=== PATIENT | male | born 1945 | race Caucasian/White ===

== ENCOUNTER 2020-05-19 08:20 | Day surgery (SDC) | payer OTHER ==
[~2020-05-19] VITALS: Ht 177.8 cm; Wt 79.4 kg
--- NOTE | ~2020-05-19 | OR ---
[facility] [address] [place], [place] [address] Draft DATE OF OPERATION: 05/19/2020 SURGEON: Sharmaine Zhu MD PREOPERATIVE DIAGNOSES: 1. Recurrent right inguinal hernia. 2. History of right laparoscopic hernia repair ([place], [place]). POSTOPERATIVE DIAGNOSIS: Recurrent right direct inguinal hernia. PROCEDURE: 1. Open repair of right recurrent inguinal hernia, prolonged, complicated and difficult. 2. Explantation of previous implanted mesh. ANESTHESIA: General endotracheal; Tasneem Parsons EDIPHONE OPERATOR, and local 20 mL of 0.25% Marcaine with epinephrine. 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 He is a patient of Dr. Charlie Page in [place], [place]. The patient lives in [place] though he works in [place]. He underwent in the past a right inguinal hernia repair by laparoscopic technique in [place], [place]. He additionally underwent left lower lobectomy at [facility] in August of 2019. His hernia repair was in 2015. Notably, he did have postoperative urinary retention at the time of his initial operation. The patient does have nocturia, but no urinary frequency during daylight hours. Empiric treatment with Flomax was undertaken, which caused him to have some episodes of minor incontinence and he discontinued it. A PSA was obtained preoperatively, which was greater than 10. A reflex free PSA was not done unfortunately, but I have discussed all this with him. Prostate exam shows no sign of nodular or enlarged prostate. His urinalysis showed 10 white cells per high-power field, and I have treated him with Bactrim antibiotic and the possibility this represents a prostatitis issue rather than a true urinary tract infection and of course, a consideration still made regarding the prostate for malignancy versus other inflammatory conditions. He strongly wishes to proceed with operation for repair of recurrent right inguinal hernia at this time, though I have told him he has increased risk for postoperative urinary retention as well as recurrent hernia. Given his logistical features including PATIENT NAME: FARSHAD KENDRICK OPERATIVE REPORT DATE OF : 43 REPORT #: [id number] PHYSICIAN: SHARMAINE ZHU MD PCP: CHARLIE PAGE DO REPORT IS CONFIDENTIAL AND NOT TO BE RELEASED WITHOUT AUTHORIZATION [facility] [address] [place], [place] [address] Draft distance for travel, work issues, COVID testing and so on, he wishes to proceed, mindful of these risks. FINDINGS: A direct hernia was ultimately discovered. The cord structures were preserved. Mesh from prior repair appeared to be completely disengaged from the lateral aspect (inguinal ligament area). The mesh was in a somewhat folded configuration in relation to portions of the cord structures, which ultimately required explantation of the mesh so as to preserve them. Peritoneal cavity was visualized and the defect in the area closed. Ultimately, repair included implantation of Prolene mesh in an underlay technique with [place] tissue. There is some small portion of previous mesh noted laterally, which could not be safely explanted otherwise. DESCRIPTION OF PROCEDURE: The patient was brought to the operating room, given a general endotracheal anesthetic. He was given Levaquin antibiotic initially, which caused a local reaction and ultimately given clindamycin instead. He is allergic to penicillin. After satisfactory general endotracheal anesthesia, the abdomen was clipped and prepared with a chlorhexidine solution and draped sterilely. A small incision was made cephalad to the pubic tubercle along the line of skin tension on the right side. Dissection was carried through the subcutaneous tissue with blunt and electrocautery dissection. External oblique was opened along its fibers revealing the underlying cord, ilioinguinal and iliohypogastric nerve branch were identified, dissected free and reflected medially around the external oblique. The cord was carefully mobilized from the floor and had a somewhat bulky appearance initially that actually not related to hernia ultimately found due to a relatively small lipoma. Further dissection in the floor showed attenuation of the floor and close inspection of cord structures showed no sign of indirect sac. A firm ridge consistent with prior mesh implantation was noted in the properitoneal space. This was dissected free and although, I had not intended that the mesh be excised at the outset of the operation. Further dissection showed it to be somewhat folded and encumbering portions of the cord structures separate and distinct from the cord that was mobilized from the floor. This included what appeared to be the vas deferens. Indeed, a portion of mesh was wrapped around the vas deferens in someway completely distorting the anatomy. With meticulous care, the mesh was dissected free from the cord structures preserving vascular supply and also the vas deferens itself. Further dissection medially in the properitoneal space allowed for explantation of almost all of the mesh except in the lateral portion where it was too contiguous with cord structures to safely remove. This did allow for entry into the peritoneal cavity showing normal bowel, no sign of ascites or carcinomatosis. PATIENT NAME: FARSHAD KENDRICK OPERATIVE REPORT DATE OF : 43 REPORT #: [id number] PHYSICIAN: SHARMAINE ZHU MD PCP: CHARLIE PAGE DO REPORT IS CONFIDENTIAL AND NOT TO BE RELEASED WITHOUT AUTHORIZATION [facility] [address] [place] [address] [place], [place] [address] Draft Plans were then made for repair. The ilioinguinal ligament and shelving edge of the ligament were well identified. Palpation easily revealed the position of the femoral artery and vein and medially, the tendon of the transversus abdominis were well preserved. Markedly attenuated fibers of the fascia and transversalis were incised with electrocautery and the properitoneal space was bluntly developed. The peritoneal defect laterally near the cord was meticulously closed with a running 2-0 Vicryl suture. A segment of Prolene mesh was cut to an elliptical configuration and secured in an underlay technique allowing all cord structures to be in continuity with each other. Photographs were taken throughout. A 20 mL of 0.25% Marcaine with epinephrine was injected locally. The cord was placed in the canal as were the inguinal nerves and the external oblique reapproximated with running 2-0 Vicryl suture. Jaret layer was reapproximated with interrupted 2-0 Vicryl after application of 20 mL of 0.25% Marcaine with epinephrine. The skin was closed with running subcuticular of 3-0 Vicryl. Steri-Strips were applied as was a Mepilex silver sponge dressing. Not mentioned previously was placement of a 7 mm flat Uzair drain extended over the external oblique down to the area of the pubic tubercle. There was not copious bleeding by any means; however, the hernia sac which was reapproximated may or may not have some leakage and the drain is deemed advisable in the short term. The patient was ultimately extubated and transferred to the recovery room in good condition having suffered no complications. Sponge, needle, and counts were correct x3. MD CAROLANN Mejia/MODL /[id number] cc: Charlie Page DO Copies: CHARLIE PAGE DO ~ PATIENT NAME: FARSHAD KNEDRICK OPERATIVE REPORT DATE OF : 43 REPORT #: [id number] PHYSICIAN: SHARMAINE ZHU MD PCP: CHARLIE PAGE DO REPORT IS CONFIDENTIAL AND NOT TO BE RELEASED WITHOUT AUTHORIZATION
[2020-05-19] MEDS ORDERED: TURMERIC 500 M1 EACH PO (08:55)
[2020-05-19] MEDS ORDERED: CURAMIN PO (08:56)
[2020-05-19] MEDS ORDERED: PROBIOTIC1 EAC1 PO (08:58)
[2020-05-19] MEDS ORDERED: MAGNESIUM500 MG PO (08:59)
[2020-05-19] MEDS ORDERED: ZINC50 M1 PO (08:59)
[2020-05-19] MEDS ORDERED: MOVE FREE JOIN1 EACH PO (09:00)
[2020-05-19] MEDS ORDERED: VITAMIN C120 G1 PO (09:00)
[2020-05-19] MEDS ORDERED: [UNRECOGNIZED DRUG - OTHER] PO (09:04)
[2020-05-19] MEDS ORDERED: IBUPROFEN600 MG PO (12:53)
[2020-05-19] MEDS ORDERED: OXYCODONE HCL5 MG PO (12:53)
[2020-05-19] MEDS ORDERED: ACETAMINOPHEN500 MG PO (12:54)
--- NOTE | 2020-05-20 11:44 | PATH ---
[facility] [address] [place], [place] [address] Signed SPECIMEN(S): A EXPLANTED MESH SPECIMEN SOURCE: A. EXPLANTED MESH CLINICAL HISTORY: Right inguinal hernia recurrent, history lap hernia repair. FINAL PATHOLOGIC DIAGNOSIS: Explanted mesh, excision: - Surgical mesh material embedded within fibroadipose tissue with associated chronic inflammation. - Adherent skeletal muscle with no histopathologic abnormality. NAL:vlg:[id number] MICROSCOPIC EXAMINATION: Histologic sections of all submitted blocks are examined by light microscopy. These findings, together with the gross examination, support the pathologic diagnosis. GROSS DESCRIPTION: The specimen, labeled "AT," and designated on the requisition "explanted mesh, right inguinal hernia recurrent," is received in formalin and consists of a portion of white-schulz mesh material with scant attached yellow-pink and soft tissue (9.5 x 7.9 x 1.4 cm). Asphalt Patcher sections are submitted in cassette A1. AC (under the direct supervision of a pathologist) The Gross Description was prepared using a voice recognition system. The report was reviewed for accuracy; however, sound-alike word errors, addition and/or deletions may occur. If there is any question about this report, please contact Client Services. PERFORMING LABORATORY: The technical component was performed by [facility], [address] [place] [id number] (Molder Apprentice: Aziza Wagner MD; CLIA# [id number]). [facility], [address] [address] (CLIA# [id number]). Diagnostician: Juanita June MD Pathologist PATIENT NAME: FARSHAD KENDRICK PATHOLOGY DATE OF : 43 REPORT #: [id number] PHYSICIAN: [facility] PCP: NAKUL PAGE DO REPORT IS CONFIDENTIAL AND NOT TO BE RELEASED WITHOUT AUTHORIZATION [address] [address] Signed Electronically Signed 05/20/2020 Copies: ~ PATIENT NAME: FARSHAD KENDRICK PATHOLOGY DATE OF : 43 REPORT #: [id number] PHYSICIAN: [facility] PCP: NAKUL PAGE DO REPORT IS CONFIDENTIAL AND NOT TO BE RELEASED WITHOUT AUTHORIZATION
== END 2020-05-19 16:15 | disposition home or self-care (01) ==
LOC: DS 08:20
PROVIDERS: ATTEND Surgery
PROC: 0YQ50ZZ Repair Right Inguinal Region, Open Approach (ICD-10-PCS; principal; 2020-05-19 09:00)
DX: K40.91 Unilateral inguinal hernia, without obstruction or gangrene, recurrent (principal); Z98.890 Other specified postprocedural states; Z88.6 Allergy status to analgesic agent; Z88.0 Allergy status to penicillin
CPT/HCPCS: 00830; C1781; J0330; J1100; J1644; J1956; J2001; J2405; J2704; J3475; J7121

== ENCOUNTER 2025-08-09 10:45 | Emergency (ER) | payer OTHER ==
[~2025-08-09] VITALS: Ht 177.8 cm; Wt 81.0 kg
--- NOTE | ~2025-08-09 | EKG ---
[facility] [address] [facility] [place], [place] [address] Draft EK completed, results pending confirmation PATIENT NAME: FARSHAD KENDRICK Electrocardiogram DATE OF : 43 PHYSICIAN: PRELIMINARY REPORT #: [id number] REPORT IS CONFIDENTIAL AND NOT TO BE RELEASED WITHOUT AUTHORIZATION
[~2025-08-09 10:45] MED LIST: ACETAMINOPHEN500 MG PO; CURAMIN PO; IBUPROFEN600 MG PO; MAGNESIUM500 MG PO; MOVE FREE JOIN1 EACH PO; OXYCODONE HCL5 MG PO; PROBIOTIC1 EAC1 PO; TURMERIC 500 M1 EACH PO; VITAMIN C120 G1 PO; ZINC50 M1 PO; [UNRECOGNIZED DRUG - OTHER] PO
[2025-08-09] MEDS ORDERED: FUROSEMIDE20 MG PO (10:58)
[2025-08-09] MEDS ORDERED: ALBUTEROL/IPRATROPIUM 3 ML NEB INH PRN (11:15)
[2025-08-09 11:29] LABS: BASOPHILS 0.2 % (0.2-1.2); EOSINOPHILS 0.2 % (0.8-7.0); LYMPHOCYTES 7.6 % (21.8-53.1); MCH 26.8 PG (25.7-32.2); MCHC 33.4 g/dL (32.3-36.5); MCV 80.2 fL (79.0-92.2); MONOCYTES 6.6 % (5.3-12.2); NEUTROPHILS 84.9 % (34.0-67.9); RBC 4.40 M/uL (4.63-6.08)
[2025-08-09 11:51] LABS: CORONAVIRUS COVID-19 AG NEGATIVE (NEGATIVE)
[2025-08-09 11:58] LABS: ALT (SGPT) 12.0 U/L (14-59); AST (SGOT) 11.0 U/L (15-37); GLOMERULAR FILTRATION RATE,EST 90.0 mL/min (>60); PROTEIN, TOTAL 6.0 g/dL (6.4-8.2); UREA NITROGEN 9.0 mg/dL (7-18)
[2025-08-09] MEDS ORDERED: FUROSEMIDE 100 MG/10 ML VIAL IV ONE (13:00)
[2025-08-09] MEDS ORDERED: KLOR-CON 1010 MEQ PO (14:13)
[2025-08-09] MEDS ORDERED: LASIX40 MG PO (14:13)
[2025-08-09 14:22] VITALS: BP 167/58
== END 2025-08-09 14:24 | disposition home or self-care (01) ==
LOC: ED 10:45
PROVIDERS: Emergency Medicine
DX: I50.9 Heart failure, unspecified (principal); E87.1 Hypo-osmolality and hyponatremia; Z79.899 Other long term (current) drug therapy; Z88.0 Allergy status to penicillin; Z88.5 Allergy status to narcotic agent; Z88.8 Allergy status to other drugs, medicaments and biological substances; Z87.891 Personal history of nicotine dependence
CPT/HCPCS: 36415; 71045; 80053; 83735; 83880; 84484; 85025; 93005; 93010; 96374; 99285-25; J1938